=== PATIENT | female | born 1985 | race Caucasian/White ===

== ENCOUNTER 2017-05-23 20:05 | Emergency (ER) | payer MEDICAID ==
[~2017-05-23] VITALS: Ht 165.1 cm; Wt 70.0 kg
[2017-05-23 20:46] LABS: BASOPHILS # (AUTO) 0.03 x10^3/uL (0-0.1); BASOPHILS % (AUTO) 1 % (0-1); EOSINOPHILS # (AUTO) 0.05 x10^3/uL (0-0.4); EOSINOPHILS % (AUTO) 1 % (1-7); LYMPHOCYTES # (AUTO) 2.42 x10^3/uL (1-3.4); LYMPHOCYTES % (AUTO) 35 % (22-44); MD NO; MEAN CORPUSCULAR HEMOGLOBIN 31.2 pg (27.0-34.8); MEAN CORPUSCULAR HGB CONC 33.2 g/dL (32.4-35.8); MEAN CORPUSCULAR VOLUME 94.1 fL (80-100); MEAN PLATELET VOLUME 8.3 fL (7.4-10.4); MONOCYTES # (AUTO) 0.34 x10^3/uL (0.2-0.8); MONOCYTES % (AUTO) 5 % (2-9); NEUTROPHILS # (AUTO) 4.14 x10^3/uL (1.8-6.8); NEUTROPHILS % (AUTO) 59 % (42-75); PLATELET COUNT 382 x10^3/uL (130-400); RED CELL DISTRIBUTION WIDTH 15.4 % (9.6-15.2)
[2017-05-23 20:48] LABS: ALBUMIN 3.6 g/dL (3.4-5.0); ANION GAP 13 mmol/L (5-15); CALCIUM 8.1 mg/dL (8.5-10.1); CHLORIDE 109 mmol/L (98-107); CREATININE 0.84 mg/dL (0.55-1.02)
[2017-05-24 02:03] VITALS: BP 126/82
== END 2017-05-24 02:27 | disposition home or self-care (01) ==
LOC: ED 23:59
DX: S09.8XXA Other specified injuries of head, initial encounter (principal); F10.220 Alcohol dependence with intoxication, uncomplicated; Y04.8XXA Assault by other bodily force, initial encounter; Y93.89 Activity, other specified; Y92.488 Other paved roadways as the place of occurrence of the external cause; Y99.8 Other external cause status; Z59.0 Homelessness
CPT/HCPCS: 36415; 70450; 72125; 80048; 80307; 82040; 85025; 99285